=== PATIENT | male | born 1990 | race African-American/Black ===

== ENCOUNTER 2018-02-09 20:53 | Emergency (ER) | payer BC, OTHER ==
[~2018-02-09] VITALS: Ht 172.7 cm; Wt 70.8 kg
[2018-02-09] MEDS ORDERED: VENTOLIN HFA 1818 GM INH ×2 (21:30→22:54)
[2018-02-09] MEDS ORDERED: ACCUNEB SO1.25 MG/1 INH (22:54)
[2018-02-09] MEDS ORDERED: PREDNISONE 20 M20 MG PO (22:54)
[2018-02-09 23:12] VITALS: BP 128/86
== END 2018-02-09 23:13 | disposition home or self-care (01) ==
LOC: ER 20:53
DX: J45.901 Unspecified asthma with (acute) exacerbation (principal); Z91.048 Other nonmedicinal substance allergy status

== ENCOUNTER 2019-06-28 21:16 | Emergency (ER) | payer BC, OTHER ==
[~2019-06-28] VITALS: Ht 167.6 cm; Wt 72.6 kg
[~2019-06-28 21:16] MED LIST: ACCUNEB SO1.25 MG/1 INH; PREDNISONE 20 M20 MG PO; VENTOLIN HFA 1818 GM INH
[2019-06-28] MEDS ORDERED: BREO ELLIPTA 11 EACH INH (21:20)
[2019-06-28 21:45] LABS: URINE BILIRUBIN NEGATIVE (Negative); URINE BLOOD NEGATIVE (Negative); URINE CLARITY CLEAR; URINE COLOR YELLOW; URINE GLUCOSE-RANDOM* NEGATIVE (Negative); URINE KETONES 1+ (Negative); URINE LEUKOCYTES-REFLEX NEGATIVE (Negative); URINE NITRITE-REFLEX NEGATIVE (Negative); URINE PROTEIN (DIPSTICK) 1+ (Negative); URINE SPECIFIC GRAVITY >= 1.030 (1.005-1.035)
[2019-06-28 21:53] LABS: AMP/METHAMP Negative (Negative); BARBITURATES Negative (Negative); BENZODIAZEPINES Negative (Negative); COCAINE Negative (Negative); METHADONE Negative (Negative); OPIATES Negative (Negative); PCP Negative (Negative)
[2019-06-28 21:57] LABS: ABSOLUTE NEUTROPHILS 7.7 thou/uL (1.4-8.2); BASOPHILS 0.6 % (0.0-2.0); EOSINOPHILS 0.8 % (0.0-3.0); HEMATOCRIT 46.9 % (42.0-52.0); HEMOGLOBIN 15.3 gm/dL (14.0-18.0); LYMPHOCYTES 10.9 % (24.0-44.0); MCH 28.3 pg (26.0-34.0); MCHC 32.7 g/dL (28.0-37.0); MCV 86.3 fL (80.0-100.0); MONOCYTES 3.9 % (1.0-8.0); PLATELET COUNT 242 thou/uL (150-400); POLYS 83.8 % (36.0-66.0); RBC 5.43 mil/uL (4.50-6.00); RDW 13.4 % (10.5-14.5); WBC 9.2 thou/uL (4.0-11.0)
[2019-06-28 22:01] LABS: CALCIUM 8.9 mg/dL (8.5-10.1); CREATININE 1.3 mg/dL (0.7-1.3); POTASSIUM 3.9 mmol/L (3.5-5.1)
[2019-06-28] MEDS ORDERED: MECLIZINE HCL25 M1 PO (22:02)
[2019-06-28] MEDS ORDERED: ZOFRAN ODT4 MG PO (22:02)
[2019-06-28 22:11] LABS: MUCUS >6 Heavy strn/LPF (None Seen); SQUAMOUS 0-3 Few /LPF (0-3)
[2019-06-28 22:12] LABS: ALBUMIN 4.5 g/dL (3.4-5.0); TOTAL BILIRUBIN 0.7 mg/dL (<0.1-1.0); TOTAL PROTEIN 9.3 g/dL (6.4-8.2)
[2019-06-28 22:12] LABS: BACTERIA-REFLEX None Seen /HPF (None Seen); CASTS None Seen /LPF (None Seen); CRYSTALS None Seen /LPF (None Seen); URINE RBC 0-2 Rare /HPF (0-2); URINE WBC-REFLEX 0-5 Rare /HPF (0-5)
[2019-06-28 23:14] VITALS: BP 130/76
--- NOTE | 2019-06-29 08:53 | EKG ---
[facility] [place] [address] ELECTROCARDIOGRAM REPORT Name: HEATH LUO Room #: [facility]P [facility]ESBhavinBhavin#: [id number] Admission: 06/28/19 Attend Phys: Discharge: 06/28/19 Date of : 89 Report #: [id number] THIS REPORT FOR: cc: Vitaly Yeung James A. DO Couchonnal, Luis F. 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
== END 2019-06-28 23:15 | disposition home or self-care (01) ==
LOC: ER 21:16
PROVIDERS: Nurse Practitioner Family
DX: E86.0 Dehydration (principal); R42 Dizziness and giddiness; R11.2 Nausea with vomiting, unspecified; J45.909 Unspecified asthma, uncomplicated; Z91.048 Other nonmedicinal substance allergy status